=== PATIENT | female | born 1955 | race Caucasian/White ===

== ENCOUNTER 2017-05-23 21:46 | Emergency (ER) | payer SELFPAY ==
[2017-05-23 22:00] VITALS: BP 145/69; PULSE 80; RESP 14; TEMP 98.3; O2SAT 98
--- NOTE | 2017-05-23 22:13 | C.PDOC ---
History Of Present Illness Patient reports that she fell onto the right shoulder this morning. Now complaining of pain and swelling to the area. Denies other injuries, numbness, weakness,. Time Seen by Provider: 05/23/17 22:08 Chief Complaint (Nursing): Upper Extremity Problem/Injury History Per: Patient History/Exam Limitations: no limitations Onset/Duration Of Symptoms: Hrs Current Symptoms Are (Timing): Still Present Exacerbating Factor(s): Nothing Recent travel outside of the [place]: No Past Medical History Reviewed: Historical Data, Nursing Documentation, Vital Signs Vital Signs: Last Vital Signs Temp 98.3 F 05/23/17 21:56 Pulse 80 05/23/17 21:56 Resp 14 05/23/17 21:56 BP 145/69 05/23/17 21:56 Pulse Ox 98 05/25/17 15:42 - Medical History PMH: HTN (non compliant) Surgical History: No Surg Hx Family History: States: No Known Family Hx - Social History Hx Alcohol Use: No Hx Substance Use: No - Immunization History Hx Tetanus Toxoid Vaccination: No Hx Influenza Vaccination: No Hx Pneumococcal Vaccination: No Review Of Systems Constitutional: Negative for: Fever, Chills Gastrointestinal: Negative for: Nausea, Vomiting Musculoskeletal: Positive for: Shoulder Pain (right ) Skin: Negative for: Rash, Lesions Neurological: Negative for: Weakness, Numbness Physical Exam - Physical Exam Appears: Well, Non-toxic, No Acute Distress Skin: Ecchymosis Head: Atraumatic, Normacephalic Eye(s): bilateral: Normal Inspection Oral Mucosa: Moist Neck: Normal ROM, No Midline Cervical Tenderness, No Paracervical Tenderness, Supple Chest: Symmetrical, No Tenderness Cardiovascular: Rhythm Regular, No Friction Rub, No Murmur Respiratory: Normal Breath Sounds, No Decreased Breath Sounds, No Rales, No Rhonchi, No Wheezing Gastrointestinal/Abdominal: Soft, No Tenderness Extremity: Tenderness (To right shoulder), Capillary Refill (< 2 sec), No Deformity, Other (Limited ROM secondary to pain. Normal Elbow and wrists) Pulses: Left Radial: Normal, Right Radial: Normal Neurological/Psych: Oriented x3, Normal Speech, Normal Cognition, Normal Motor, Normal Sensation Gait: Steady ED Course And Treatment O2 Sat by Pulse Oximetry: 98 (RA) Pulse Ox Interpretation: Normal Medical Decision Making Medical Decision Making: Administered Tylenol. Ordered right shoulder and Humerus right X-Ray. xray (+) for non-displaced communited fx of the left proximal humeral head. Patient was placed in sling and was instructed to follow up with an Orthopedist. Disposition - Disposition Referrals: Mikey Santillan MD [Staff Provider] - Disposition: HOME/ ROUTINE Disposition Time: 22:49 Condition: GOOD Additional Instructions: Follow up with the Orthopedist/Ortho clinic within 1-2 weeks. Return if worsened. Prescriptions: Acetaminophen [Tylenol] 325 mg PO Q6 PRN #30 tab PRN Reason: Pain, Mild (1-3) traMADol [Ultram] 50 mg PO Q6 PRN #20 tab PRN Reason: Pain Instructions: Shoulder Fracture Forms: [employer] ([place]) - Clinical Impression Clinical Impression: Shoulder fracture - PA / CHILD CARE PROVIDER / Resident Statement MD/DO has reviewed & agrees with the documentation as recorded. - Scribe Statement The provider has reviewed the documentation as recorded by the Singhibsae Kilgore All medical record entries made by the Scribe were at my direction and personally dictated by me. I have reviewed the chart and agree that the record accurately reflects my personal performance of the history, physical exam, medical decision making, and the department course for this patient. I have also personally directed, reviewed, and agree with the discharge instructions and disposition.
--- NOTE | 2017-05-24 08:27 | RAD ---
PROCEDURE: Radiographs of the right shoulder Radiographs of the right humerus HISTORY: shoulder injury COMPARISON: None available. FINDINGS: BONES: Comminuted displaced fracture of the humeral head with intra-articular extension. The distal clavicle and underlying ribs appear intact. Linear sclerotic focus noted within the glenoid of unclear significance. JOINTS: No acute dislocation. SOFT TISSUES: Soft tissue swelling. No evidence of radiopaque foreign body. IMPRESSION: Comminuted displaced fracture of the humeral head with intra-articular extension. Associated soft tissue swelling. Linear sclerotic focus noted within the glenoid of uncertain significance.
== END 2017-05-23 22:57 | disposition home or self-care (01) ==
LOC: C.ER 21:46
DX: S42.291A Other displaced fracture of upper end of right humerus, initial encounter for closed fracture (principal); W19.XXXA Unspecified fall, initial encounter; I10 Essential (primary) hypertension